=== PATIENT | female | born 1980 | race Caucasian/White ===

== ENCOUNTER 2024-03-23 11:26 | Outpatient (CLI) | payer OTHER ==
[~2024-03-23 11:26] MED LIST: PRENATALES
== END 2024-03-23 11:28 | disposition home or self-care (01) ==
LOC: SONOGRAMA 11:26
PROVIDERS: ATTEND Pathology Anatomic Pathology & Clinical Pathology
DX: R22.1 Localized swelling, mass and lump, neck (principal)